=== PATIENT | male | born 1990 | race Caucasian/White ===

== ENCOUNTER 2022-06-26 21:11 | Emergency (ER) | payer OTHER, SELFPAY ==
[2022-06-26 22:00] VITALS: BP 140/71; PULSE 89; RESP 16; TEMP 36.6; O2SAT 100
[2022-06-26 22:18] LABS: Basophils Absolute Auto 0.1 K/mm3 (0.0-0.1); Basophils Percent Auto 0.8 % (0.2-1.2); Eosinophils Absolute Auto 0.3 K/mm3 (0-0.3); Eosinophils Percent Auto 2.4 % (0-4.4); Hematocrit 42.3 % (42.0-52.0); Hemoglobin 13.6 g/dL (14.0-18.0); Immature Granulocyte Absolute 0.05 K/mm3 (0.00-0.031); Immature Granulocyte Percent A 0.4 % (0-0.5); Lymphocytes Absolute Auto 1.68 K/mm3 (0.9-3.2); Lymphocytes Percent Auto 14.7 % (18.3-44.2); Mean Corpuscular HGB Conc 32.2 g/dl (32-36); Mean Corpuscular Hemoglobin 28.8 pg (26-34); Mean Corpuscular Volume 89.4 fl (80-100); Mean Platelet Volume 11.4 fl (7.4-10.4); Monocytes Absolute Auto 1.1 K/mm3 (0.1-0.6); Monocytes Percent Auto 9.5 % (2.6-8.5); Neutrophils Absolute Auto 8.3 K/mm3 (1.3-6.7); Neutrophils Percent Auto 72.2 % (45.5-73.1); Platelet Count Result 203 k/mm3 (150-375); Red Blood Count 4.73 M/mm3 (4.6-6.20); Red Cell Distribution Width 13.2 % (11.5-14.5); White Blood Count 11.5 K/mm3 (4.5-10.0)
[2022-06-26 22:31] LABS: Anion Gap 14 mmol/L (8-16); Blood Urea Nitrogen 13 mg/dL (9-20); Calcium 9.6 mg/dL (8.4-10.2); Carbon Dioxide 23 mmol/L (22-30); Chloride 105 mmol/L (98-107); Estimated CRCL calculation 168 ml/min; Estimated Glomerular Filt Rate > 60; Glucose 113 mg/dL (65-110); Potassium 3.8 mmol/L (3.4-5.0); Sodium 142 mmol/L (137-145)
[2022-06-26 22:45] LABS: Prothrombin Time 13.1 Seconds (11.1-14.7)
[2022-06-26 22:46] LABS: Partial Thromboplastin Time 29.3 SECONDS (22.3-36.8)
[2022-06-27 02:25] VITALS: BP 121/73; PULSE 84; RESP 18; O2SAT 99
--- NOTE | 2022-06-27 03:21 | ED.GENADULT ---
HPI - General Adult General Chief complaint: Extremity Problem,Nontraumatic Stated complaint: left leg pain and swelling that began today Time Seen by Provider: 06/27/22 02:38 History of Present Illness HPI narrative: 32-year-old male presenting the emergency department for evaluation of left calf pain. Patient states for the last 24 hours he has had worsening left calf pain and erythema. Patient denies any falls or injuries. Patient denies any prior history of PE or DVT. Patient does think he has had a previous episode of cellulitis that did improve with antibiotics. Patient denies any associated chest pain or shortness of breath. Patient denies any hormone replacement, history of cancer, long car rides or plane flights. Related Data Allergies Allergy/AdvReac Type Severity Reaction Status Date / Time amoxicillin Allergy Unknown Verified 06/27/22 03:41 Review of Systems Review of Systems: CONSTITUTIONAL: Denies fever, chills, or sweats. EYES: Denies visual changes, redness, or discharge. ENT: Denies rhinorrhea, congestion, sore throat, or otalgia. CARDIOVASCULAR: Denies chest pain, palpitations, or edema. RESPIRATORY: Denies cough or dyspnea. GASTROINTESTINAL: Denies abdominal pain, nausea, vomiting, or diarrhea. GENITOURINARY: Denies dysuria or hematuria. SKIN: See HPI MUSCULOSKELETAL: Denies back pain, joint pain, or myalgia. NEUROLOGIC: Denies headache, numbness, or weakness. PSYCHIATRIC: Denies anxiety or depression. Exam Narrative: APPEARANCE: Well appearing, no pain, no distress, well-nourished. HEAD: normocephalic, atraumatic. EYES: PERRLA/EOMI, conjunctivae clear. NOSE: Normal no drainage EARS:TMS clear with good light reflex. THROAT: Pharynx clear, no exudate. NECK: Supple. No adenopathy, no masses. RESPIRATORY: Airway patent, respirations nonlabored. Clear to auscultation bilaterally, no rales, rhonchi, wheezing. CARDIOVASCULAR: Regular rate and rhythm without murmurs rubs or gallops. ABDOMINAL: Soft, nontender, nondistended, normal bowel sounds MUSCULOSKELETAL: Moves all extremities. Strength/ROM intact, No calf tenderness. NEURO: Alert. Cranial nerves II through XII intact. Good gait. Good coordination SKIN: Left posterior calf tenderness and erythema, left lower extremity edema PSYCHIATRIC: Normal affect/mood. Course Vital Signs Vital signs: Vital Signs Temperature 98 F 06/26/22 22:00 Pulse Rate 89 06/26/22 22:00 Respiratory Rate 16 06/26/22 22:00 Blood Pressure 140/71 06/26/22 22:00 Pulse Oximetry 100 06/26/22 22:00 Oxygen Delivery Room Air 06/26/22 22:00 Temperature 99.0 F 06/27/22 03:42 Pulse Rate 91 06/27/22 03:42 Respiratory Rate 18 06/27/22 03:42 Blood Pressure 129/94 H 06/27/22 03:42 Pulse Oximetry 100 06/27/22 03:42 Oxygen Delivery Room Air 06/26/22 22:00 Medical Decision Making Vital Signs Vital Signs: Vital Signs Temperature 98 F 06/26/22 22:00 Pulse Rate 89 06/26/22 22:00 Respiratory Rate 16 06/26/22 22:00 Blood Pressure 140/71 06/26/22 22:00 Pulse Oximetry 100 06/26/22 22:00 Oxygen Delivery Room Air 06/26/22 22:00 Temperature 99.0 F 06/27/22 03:42 Pulse Rate 91 06/27/22 03:42 Respiratory Rate 18 06/27/22 03:42 Blood Pressure 129/94 H 06/27/22 03:42 Pulse Oximetry 100 06/27/22 03:42 Oxygen Delivery Room Air 06/26/22 22:00 Lab Data Lab results reviewed: Yes I reviewed the patient's lab results. Result diagrams: 06/26/22 22:11 06/26/22 22:11 Labs: Lab Results 06/26/22 06/26/22 06/26/22 Range/Units 22:11 22:11 22:11 WBC 11.5 H (4.5-10.0) K/mm3 RBC 4.73 (4.6-6.20) M/mm3 Hgb 13.6 L (14.0-18.0) g/dL Hct 42.3 (42.0-52.0) % MCV 89.4 (80-100) fl MCH 28.8 (26-34) pg MCHC 32.2 (32-36) g/dl RDW 13.2 (11.5-14.5) % Plt Count 203 (150-375) k/mm3 MPV 11.4 H (7.4-10.4) fl Immature Gran % (Auto) 0.4 (0-0.5) % Neut
[2022-06-27 03:42] VITALS: BP 129/94; PULSE 91; RESP 18; TEMP 37.2; O2SAT 100
[2022-06-27] MEDS: CLINDAMYCIN HCL 150 MG CAP 300 MG PO (03:45)
== END 2022-06-27 03:51 | disposition home or self-care (01) ==
PROVIDERS: Preventive Medicine Aerospace Medicine; Emergency Provider Emergency Medicine; PCP Family Medicine
DX: L03.116 Cellulitis of left lower limb (principal)
CPT/HCPCS: 36415; 80048; 85025; 85610; 85730; 99283; A9270

== ENCOUNTER 2022-06-27 09:19 | Outpatient (CLI) | payer OTHER, SELFPAY ==
--- NOTE | ~2022-06-27 | US_ITS ---
EXAMINATION:US venous doppler LE LT INDICATION:Leg edema TECHNIQUE: Multiple grayscale, color flow and Doppler images of the left lower extremity deep venous systems were obtained and reviewed. COMPARISON:No prior studies for comparison. FINDINGS: The common femoral, superficial femoral and popliteal veins demonstrate normal respiratory variation, augmentation and compressibility. Color flow is also seen within the posterior tibial, pe roneal, greater saphenous and profunda veins. There is left inguinal lymphadenopathy, largest measuring 2.8 x 1.1 x 1.9 cm IMPRESSION: 1: No lower extremity deep venous thrombosis. 2: Left inguinal lymphadenopathy, likely reactive. Reviewed, dictated and finalized at location B.
== END 2022-06-27 09:20 | disposition home or self-care (01) ==
PROVIDERS: PCP Family Medicine; Visit Provider Emergency Medicine
DX: M79.606 Pain in leg, unspecified (principal); R59.0 Localized enlarged lymph nodes
CPT/HCPCS: 93971

== ENCOUNTER 2025-06-10 18:47 | Emergency (ER) | payer OTHER, SELFPAY ==
--- NOTE | ~2025-06-10 | XR_ITS ---
EXAMINATION: XR finger 3rd LT min 2V DATE: 06/10/2025 19:07 INDICATION: Blunt trauma with laceration to the tip of the left third digit TECHNIQUE: Dorsal palmar, lateral and 2 oblique views of the left third digit were obtained COMPARISON: None FINDINGS: Comminuted fractured tuft of the left third digit with minimal displacement of a small fracture fragments. There is overlying bandaging material consistent with reported laceration which is involving the nailbed quadrant of the cervical length of an open/compound fracture at increased risk of infection. No other fractures identified. Otherwise normal alignment and joint spaces throughout the visualized left hand. IMPRESSION: 1. Minimally displaced mildly comminuted fractures of the tuft of the left third digit. If there is associated nailbed injury this would typically be considered equivalent of an open/compound fracture at increased risk of infection. Reviewed, dictated and finalized at location A. IMPRESSION: 1. Minimally displaced mildly comminuted fractures of the tuft of the left thir d digit. If there is associated nailbed injury this would typically be consider ed equivalent of an open/compound fracture at increased risk of infection.
--- NOTE | 2025-06-10 18:52 | ED_ITS ---
HPI - Extremity Injury (Upper) General Chief Complaint: Extremity Injury, Upper Stated Complaint: Left Hand Finger Pain Time Seen by Provider: 06/10/25 18:51 Source: patient Mode of arrival: ambulatory Limitations: no limitations History of Present Illness HPI narrative: Patient is a 35-year-old male who presents with left middle finger pain after getting distal portion of finger smashed between 2 carts at work. Incident happened around 4:00 p.m. patient reported significant amount of blood in the beginning but has since stopped. Denies any numbness, tingling to finger. Patient is not up-to-date on tetanus shot Related Data Allergies Allergy/AdvReac Type Severity Reaction Status Date / Time amoxicillin Allergy Unknown Verified 06/10/25 19:13 Review of Systems Review of Systems: All systems reviewed & are unremarkable except as noted in HPI and below Constitutional: Constitutional: Denies body ache(s), Denies chills, Denies fatigue, Denies fever(s), Denies headache(s), Denies malaise and Denies weakness Eyes: Eyes: Denies blurry vision, Denies irritation and Denies loss of vision ENT: Denies otalgia, Denies headache(s), Denies nasal discharge, Denies sinus pain and Denies sore throat Cardiovascular: Cardiovascular: Denies chest pain, Denies irregular heart rhythm and Denies dyspnea Respiratory: Respiratory: Denies dyspnea Gastrointestinal: Gastrointestinal: Denies abdominal pain, Denies melena, Denies hematochezia, Denies diarrhea, Denies nausea and Denies vomiting Musculoskeletal: Musculoskeletal: Denies back pain, Denies myalgias and Reports arthralgias Integumentary/Breasts: Skin/Breast: Denies pruritus and Denies rash Neurologic: Denies headache(s), Denies loss of vision and Denies weakness Psychiatric: Psychiatric: Reports no additional psychiatric complaints Endocrine: Endocrine: Denies fatigue PMFSH Comments At time of signature, agree with nursing past medical, surgical, social and family history. There is no relevant family history pertinent to the presenting complaint. Exam Const: General: cooperative, healthy appearing, comfortable, no acute distress and well nourished Nutritional Appearance: well nourished Orientation/consciousness: patient oriented x3 Limitations: no limitations HENMT: Head: normal to inspection, normocephalic and atraumatic Ears: hearing grossly normal bilaterally and external ears normal Face/Nose/Sinus: Normal external nose present, normal facial exam and face symmetric Face and sinus: normal facial exam and face symmetric Mouth: Yes lip normal Eyes: General: appearance normal, both eyes and all related structures Alignment and Position: alignment normal and position normal Periorbital: periorbital findings normal Eyelids: eyelids normal Pupils: Equal, round and reactive pupils present EOM: EOMs intact bilaterally Neck: Neck: normal visual inspection, full ROM and supple Chest: Chest palpation & inspection: normal inspection of the chest Resp: Effort & Inspection: normal respiratory effort and able to speak in complete sentences Auscultation: clear to auscultation bilaterally Cardio: Rate: regular rate Rhythm: regular rhythm Heart sounds: S1 normal heart sound present and S2 normal heart sound present GI: Inspection: normal to inspection Skin: General skin exam: normal color and no rashes or lesions noted Neuro: General: patient oriented x3 and moves all extremities Cranial nerves: Yes Equal, round and reactive pupils present Speech: normal speech Gait exam (Neuro): Normal gait present Extrem: General: normal to inspection, full ROM and no edema Left upper extremity: wrist normal to inspection, normal ROM, normal vascular exam and radial pulse present; no tenderness and no swelling and hand normal to insp ection, normal capillary refill, neuromotor exam normal Details: wrist extension normal, thumb opposition normal, thumb IP flexion normal, thumb ADduction normal and fingers 2-5 ABduction normal, neurosensory exam normal Details: radial nerve sensory function normal, ulnar nerve sensory function normal, median nerve sensory function normal and digital nerve sensory function normal, tendon exam normal Location: of all digits, tenderness of the 3rd digit at the distal phalanx and at the DIP joint, vascular exam radial pulse present and normal capillary refill, normal ROM of fingers and ecchymosis of the 3rd digit at the distal phalanx Psych: Appearance: grossly normal and well kempt Mental Status: mental status grossly normal Speech and movement: Normal speech and movement present Affect: normal affect Attitude: cooperative Thought process: Normal thought process present Course Course Emergency Course: Patient is aware of diagnosis, understands and agrees to treatment plan. Anticipatory guidance given. Patient agrees to follow-up as directed and is aware of reasons to seek care at the emergency department. Portions of this record may have been created with voice recognition software Level of Care: Express Care Visit Vital Signs Vital signs: Reviewed MDM - Extremity Injury (Upper) MDM Narrative Medical decision making narrative: There is no deformity of the finger, but swelling and bruising present to distal phalanx. The patient is unable to extend or flex it well because of the pain. The PIP joint is not tender and extension is full and strong there. The DIP joint area is not particularly swollen but is tender due to swelling. There is a subungual hematoma towards the distal portion of the nail with active oozing of blood under distal tip of nail. Will not use cautery as it is already actively oozing. Will treat with antibiotics as it is a possible open fracture due to nail trauma and referred to Dr. alcantara Pt well hydrated appearing, in no respiratory distress, hemodynamically stable. Recommend supportive care. The patient is stable at time of discharge the clinical impression was discussed and the patient was given the opportunity to ask questions, which were addressed as completely as possible given the information available at present. Anticipatory guidance and return to care precautions were discussed and the importance of primary care follow-up was stressed and encouraged. The patient voiced understanding of the plan, indications to return, and the need for follow-up. Exam findings show no acute concerns or changes Patient is appropriate for outpatient treatment and follow-up. Differential Diagnosis Differential diagnosis: Likely finger sprain, dislocation of finger and other (Finger fracture) Medical Records Attestation: I reviewed the patient's medical records. Imaging Data Radiologist's impression: EXAMINATION: XR finger 3rd LT min 2V DATE: 06/10/2025 19:07 INDICATION: Blunt trauma with laceration to the tip of the left third digit TECHNIQUE: Dorsal palmar, lateral and 2 oblique views of the left third digit were obtained COMPARISON: None FINDINGS: Comminuted fractured tuft of the left third digit with minimal displacement of a small fracture fragments. There is overlying bandaging material consistent with reported laceration which is involving the nailbed quadrant of the cervical length of an open/compound fracture at increased risk of infection. No other fractures identified. Otherwise normal alignment and joint spaces throughout the visualized left hand. IMPRESSION: 1. Minimally displaced mildly comminuted fractures of the tuft of the left third digit. If there is associated nailbed injury this would typically be considered equivalent of an open/compound fracture at increased risk of infection. Discharge Plan Discharge Clinical Impression: Subungual hematoma Finger fracture Qualifiers: Encounter type: initial encounter Finger: middle finger Fracture type: open Phalanx: distal Fracture alignment: displaced Laterality: left Qualified Code(s): S62.633B - Displaced fracture of distal phalanx of left middle finger, initial encounter for open fracture Patient Disposition: Home Condition: Stable Instructions: Diphtheria/Acellular Pertussis/Tetanus Booster Vaccine (By injection), Finger Fracture (ED) Additional Instructions: Take antibiotics as prescribed. Your tetanus shot was updated today Please rest, ice and elevate the affected extremity. Please take Motrin 600mg every 8 hours, as needed, for pain (take with food). Follow up with Orthopedic Surgery in 1-2 days for further evaluation - please call for an appointment. Please go to ER immediately for increased pain, tingling/numbness, swelling, redness, and fever For pain, you may take: Tylenol 650-1000mg by mouth every 4-6 hours. Do not exceed 4000mg in 24 hours. Advil (Ibuprofen) 600 mg by mouth every 6 hours. Do not exceed 2400mg in 24 hours. 8 AM: Tylenol 11 AM: Ibuprofen 2 PM: Tylenol 5 PM: Ibuprofen 8 PM: Tylenol 11 PM: Ibuprofen 2 AM: Tylenol 5 AM: Ibuprofen Your blood pressure was elevated above 120/80 today at Urgent Care. This puts you above the threshold for follow up visit with a primary care provider. High blood pressure does not usually cause any symptoms, however it may lead to kidney failure, stroke, heart disease just to name a few if untreated . Many people are anxious when seeing a provider or nurse. As a result, you are not diagnosed with hypertension at this time unless your blood pressure is persistently high at two office visits at least one week apart. Some things that can help lower blood pressure are lifestyle modifications, such as light exercise, decreased salt in diet, and weight loss. It is important to follow up with a PCP about this within 1 week. Patient Language: [place] Prescriptions: New cephalexin 500 mg capsule 500 mg PO QID 7 Days Qty: 28 0RF ibuprofen 600 mg tablet 600 mg PO TID PRN (Reason: pain) Qty: 30 0RF Follow-up/Referrals: Erma Alcantara MD [Physician, Plastic Surgery] - 3 Days Referral Note: Distal finger fracture with nailbed trauma. Nail intact Ta Patricia MD [Physician, Family Practice] - 3 Days Referral Note: Establish care Stand Alone Forms: Work/School Release IP Time of Disposition: 19:51
[2025-06-10 18:57] VITALS: BP 141/79; PULSE 75; RESP 16; TEMP 36.3; O2SAT 100
[2025-06-10] MEDS: TETANUS,DIPHTHERIA,AC PERTUSSIS ADULT (0.5 ML) BOOSTRIX IM (19:46)
== END 2025-06-10 19:56 | disposition home or self-care (01) ==
PROVIDERS: Emergency Provider Nurse Practitioner Family
DX: S60.132A Contusion of left middle finger with damage to nail, initial encounter (principal); S62.633B Displaced fracture of distal phalanx of left middle finger, initial encounter for open fracture; X58.XXXA Exposure to other specified factors, initial encounter; Y99.0 Civilian activity done for income or pay; Z23 Encounter for immunization
CPT/HCPCS: 73140; 90471; 90715; 99213; G0463